=== PATIENT | female | born 1940 | race Two or more races ===

== ENCOUNTER 2016-10-04 22:30 | Inpatient (IN) | payer MEDICARE, MEDICAID ==
[2016-10-04 23:19] LABS: ABSOLUTE EOSINOPHILS # (AUTO) 0.3 10^3/uL (0.0-0.6); ABSOLUTE LYMPHOCYTES (AUTO) 1.8 10^3/uL (0.5-4.7); ABSOLUTE MONOCYTES (AUTO) 0.9 10^3/uL (0.1-1.4); ABSOLUTE NEUT (AUTO) 9.9 10^3/uL (1.7-8.2); BASOPHILS % (AUTO) 0.3 % (0-2); EOSINOPHILS % (AUTO) 1.9 % (0-6); HEMATOCRIT 38.7 % (36.0-47.0); HEMOGLOBIN 12.8 g/dL (12.0-15.5); HGB HCT DIFFERENCE -0.3; LYMPHOCYTES % (AUTO) 14.3 % (13-45); MEAN CORPUSCULAR VOLUME 82 fl (80-97); MONOCYTES % (AUTO) 6.9 % (3-13); RED BLOOD COUNT 4.73 10^6/uL (3.72-5.28); RED CELL DISTRIBUTION WIDTH 15.7 % (11.5-14.0); SEGMENTED NEUTROPHILS % (AUTO) 76.6 % (42-78); WHITE BLOOD COUNT 12.9 10^3/uL (4.0-10.5)
--- NOTE | 2016-10-04 23:25 | RADIOLOGY REPORT (SQ) ---
EXAM DESCRIPTION: CHEST SINGLE VIEW COMPLETED DATE/TIME: 10/04/2016 11:16 pm REASON FOR STUDY: chest pain COMPARISON: None. EXAM PARAMETERS: NUMBER OF VIEWS: One view. TECHNIQUE: Single frontal radiographic view of the chest acquired. RADIATION DOSE: NA LIMITATIONS: None. FINDINGS: LUNGS AND PLEURA: No opacities, masses or pneumothorax. No pleural effusion. Chronic appe aring changes are identified. MEDIASTINUM AND HILAR STRUCTURES: No masses. Contour normal. HEART AND VASCULAR STRUCTURES: Heart normal in size. Normal vasculature. BONES: No acute findings. HARDWARE: Transvenous pacemaker is identified in position. OTHER: No other significant finding. IMPRESSION: NO ACUTE RADIOGRAPHIC FINDING IN THE CHEST. TECHNICAL DOCUMENTATION: JOB ID: [id number]
--- NOTE | 2016-10-04 23:38 | ER Document Report ---
ED General - General Chief Complaint: Chest Pain Stated Complaint: CHEST PAIN Time Seen by Provider: 10/04/16 23:11 Mode of Arrival: Ambulatory Information source: Patient Notes: 76-year-old female presents with complaints of cough chest wall pain of 3 day duration. Patient notes it is a dry cough denies any fevers admits to shortness of breath TRAVEL OUTSIDE OF THE [place] IN LAST 30 DAYS: No - HPI Onset: Other - 3 day duration Onset/Duration: Persistent Quality of pain: Achy Severity: Mild Pain Level: 1 Associated symptoms: Body/muscle aches, Nonproductive cough, Shortness of breath Exacerbated by: Coughing Relieved by: Denies Similar symptoms previously: No Recently seen / treated by doctor: No - Related Data Allergies/Adverse Reactions: aspirin Allergy (Verified 10/04/16 22:51) Home Medications: Current Home Medications No Home Medications 10/04/16 [History] Past Medical History - Social History Smoking Status: Never Smoker Cigarette use (# per day): No Chew tobacco use (# tins/day): No Smoking Education Provided: No Family History: Reviewed & Not Pertinent Renal/ Medical History: Denies: Hx Peritoneal Dialysis Review of Systems - Review of Systems Notes: REVIEW OF SYSTEMS: CONSTITUTIONAL : Denies fever, chills, or sweats. Denies recent illness. EENT: Denies eye, ear, throat, or mouth pain or symptoms. Denies nasal or sinus congestion or discharge. Denies throat, tongue, or mouth swelling or difficulty swallowing. CARDIOVASCULAR: Denies chest pain. Denies palpitations or racing or irregular heart beat. Denies ankle edema. RESPIRATORY: sob GASTROINTESTINAL: Denies abdominal pain or distention. Denies nausea, vomiting , or diarrhea. Denies blood in vomitus, stools, or per rectum. Denies black, tarry stools. Denies constipation. GENITOURINARY: Denies difficulty urinating, painful urination, burning, frequency, blood in urine, or discharge. FEMALE GENITOURINARY: Denies vaginal bleeding, heavy or abnormal periods, irregular periods. Denies vaginal discharge or odor. MUSCULOSKELETAL: Denies back or neck pain or stiffness. Denies joint pain or swelling. SKIN: Denies rash, lesions or sores. HEMATOLOGIC : Denies easy bruising or bleeding. LYMPHATIC: Denies swollen, enlarged glands. NEUROLOGICAL: Denies confusion or altered mental status. Denies passing out or loss of consciousness. Denies dizziness or lightheadedness. Denies headache. Denies weakness or paralysis or loss of use of either side. Denies problems with gait or speech. Denies sensory loss, numbness, or tingling. Denies seizures. PSYCHIATRIC: Denies anxiety or stress. Denies depression, suicidal ideation, or homicidal ideation. ALL OTHER SYSTEMS REVIEWED AND NEGATIVE. PHYSICAL EXAMINATION: GENERAL: Well-appearing, well-nourished and in no acute distress. HEAD: Atraumatic, normocephalic. EYES: Pupils equal round and reactive to light, extraocular movements intact, conjunctiva are normal. ENT: Nares patent, oropharynx clear without exudates. Moist mucous membranes. NECK: Normal range of motion, supple without lymphadenopathy LUNGS: Bibasilar crackles HEART: Tachycardia ABDOMEN: Soft, nontender, nondistended abdomen. No guarding, no rebound. No masses appreciated. Female : deferred Musculoskeletal: Normal range of motion, no pitting or edema. No cyanosis. NEUROLOGICAL: Cranial nerves grossly intact. Normal speech, normal gait. Normal sensory, motor exams PSYCH: Normal mood, normal affect. SKIN: Warm, Dry, normal turgor, no rashes or lesions noted. Dictation was performed using [employer] voice recognition software Physical Exam - Vital signs Vitals: Temp Pulse Resp BP Pulse Ox 99.4 F 110 H 22 H 154/69 H 93 10/04/16 22:51 10/04/16 22:51 10/04/16 22:51 10/04/16 22:51 10/04/16 22:51 Course - Re-evaluation Re-evalutation: 10/05/16 01:24 Chest x-ray no no acute abnormality CT of the chest is pending given tachycardia elevated d-dimer - Vital Signs Vital signs: Temp Pulse Resp BP Pulse Ox 99.4 F 110 H 22 H 154/69 H 99 10/04/16 22:51 10/04/16 22:51 10/04/16 22:51 10/04/16 22:51 10/04/16 23:51 - Laboratory Result Diagrams: 10/04/16 23:05 10/04/16 23:05 Laboratory results interpreted by me: 10/04/16 10/04/16 10/04/16 23:05 23:05 23:05 WBC 12.9 H RDW 15.7 H Absolute Neutrophils 9.9 H D-Dimer 0.70 H Glucose 117 H Creatine Kinase 29 L Total Protein 8.5 H Discharge - Discharge Clinical Impression: Pneumonia Qualifiers: Pneumonia type: due to unspecified organism Laterality: right Lung location: lower lobe of lung Qualified Code(s): J18.1 - Lobar pneumonia, unspecified organism Sepsis Qualifiers: Sepsis type: sepsis due to unspecified organism Qualified Code(s): A41.9 - Sepsis, unspecified organism Condition: Stable Disposition: ADMITTED INPATIENT Admitting Provider: Hospitalist Unit Admitted: Telemetry
[2016-10-04 23:41] LABS: ALANINE AMINOTRANSFERASE 30 U/L (9-52); ALBUMIN 4.4 g/dL (3.5-5.0); ALKALINE PHOSPHATASE 90 U/L (38-126); ANION GAP 12 (5-19); ASPARTATE AMINO TRANSFERASE 36 U/L (14-36); BILIRUBIN,DIRECT 0.4 mg/dL (0.0-0.4); BILIRUBIN,TOTAL 0.6 mg/dL (0.2-1.3); BLOOD UREA NITROGEN 13 mg/dL (7-20); CALCIUM 8.7 mg/dL (8.4-10.2); CARBON DIOXIDE 30 mmol/L (22-30); CHLORIDE 100 mmol/L (98-107); CREATINE KINASE 29 U/L (30-135); CREATININE RESULT 0.85 mg/dL (0.52-1.25); GLUCOSE 117 mg/dL (75-110); POTASSIUM 3.8 mmol/L (3.6-5.0); SODIUM 141.5 mmol/L (137-145); TOTAL PROTEIN 8.5 g/dL (6.3-8.2)
[2016-10-04 23:52] LABS: CREATINE KINASE MB 0.28 ng/mL (<4.55)
[2016-10-04 23:53] LABS: TROPONIN I < 0.012 ng/mL
[2016-10-05] MEDS: NORMAL SALINE 1000 ML 1,000 ML IV PRN ×4 (00:24→04:38)
--- NOTE | 2016-10-05 02:15 | RADIOLOGY REPORT (SQ) ---
EXAM DESCRIPTION: CTA CHEST COMPLETED DATE/TIME: 10/05/2016 1:43 am REASON FOR STUDY: sob chest pain COMPARISON: CR, 10/04/2016. TECHNIQUE: CT scan of the chest performed using helical scanning technique with dynamic intravenous contrast injection. Images reviewed with lung, soft tissue and bone windows. Reconstructed coronal and sagittal MPR images reviewed. Additional 3 dimensional post-processing performed to develop Maximal Intensity Projection images ([place] P). All images stored on PACS. All CT scanners at this facility use dose modulation, iterative reconstruction, and/or weight based d osing when appropriate to reduce radiation dose to as low as reasonably achievable (ALARA). [facility]: Dose Right [facility]: CareDose [facility]: Dose Right [facility]: Teradose 4D [facility]: [employer] CONTRAST TYPE AND DOSE: contrast/concentration: Isovue 370.00 mg/ml; Total Contrast Delivered: 100.0 ml; Total Saline Delivered: 40.0 ml RENAL FUNCTION: Creatinine 0.9. RADIATION DOSE: Up-to-date CT equipment and radiation dose reduction techniques were employed. CTDIv ol: 18.6 mGy. DLP: 577 mGy-cm. . LIMITATIONS: IV infiltration; after repeat imaging. Streak artifact. Related to cardiac stimulatio n device Decreases sensitivity -specificity FINDINGS: LUNGS AND PLEURA: Rdeg-si-ovuxhdit thickened interstitium, scar, and/or fibrosis with uppe r lobe predominance bilaterally and scattered involvement of the lower lobes. Mild likely benign pul monary nodular components include a non solid 0.4 cm nodule of the superior segment of the right lowe r lobe, image 17 of series 4. AORTA AND GREAT VESSELS: No aneurysm or dissection. HEART: No pericardial effusion. PULMONARY ARTERIES: No significant pulmonary embolus. No right ventricular strain. HILAR AND MEDIASTINAL STRUCTURES: Bgxs-ih-ruuniysd mediastinal and bi hilar lymphadenopathy. HARDWARE: None in the chest. UPPER ABDOMEN: No significant findings. Limited exam. THYROID AND OTHER SOFT TISSUES: No masses. No adenopathy. BONES: No acute or significant finding. 3D MIPS: Confirm above findings. OTHER: No other significant finding. IMPRESSION: 1. Zluj-sb-gnhwjusn chronic interstitial lung disease and/or mild -moderate pulmonary e alcon, 0.4 cm right lower lobar pulmonary nodule, and wxwn-nd-gettalbo mediastinum bi hilar lymphadeno jameel. Infectious, inflammatory, and neoplastic processes are in the differential diagnosis. CT buck veillance recommended in 3 months. 2. No evidence of pulmonary emboli. TECHNICAL DOCUMENTATION: JOB ID: [id number] Quality ID # [id number]: Final reports with documentation of one or more dose reduction techniques (e.g., Au tomated exposure control, adjustment of the mA and/or kV according to patient size, use of iterative reconstruction technique) 2010 [employer]- All Rights Reserved
[2016-10-05] MEDS ORDERED: LEVOFLOXACIN 500 MG/D5W RTU 100 ML IV ONE (02:19)
[2016-10-05 03:08] LABS: ADD ON TESTING BLD IN LAB ACKNOWLEDGE
[2016-10-05] MEDS ORDERED: IPRATROPIUM/ALBUTEROL 0.5-2.5 MG/3 ML AMPUL NEB PRN (05:29)
[2016-10-05] MEDS ORDERED: ACETAMINOPHEN 325 MG TABLET PO PRN (05:29)
[2016-10-05] MEDS ORDERED: PROMETHAZINE HCL 25 MG TABLET PO PRN (05:31)
--- NOTE | 2016-10-05 05:46 | PDOC H&P ---
History of Present Illness Admission Date/PCP: 10/05/16 03:09 [facility] Cardiology Dr. Garcia Patient complains of: Cough, shortness of breath, chest wall pain History of Present Illness: FLAVIO ZHONG is a 76 year old female, status post permanent pacemaker implant for bradycardia, but otherwise negative cardiac and pulmonary history, who presents to the emergency room for evaluation of a 3 day history of a persistent quite annoying mostly dry cough, with associated chest wall pain and shortness of breath. Patient has been discussed with emergency room physician who evaluated the patient. Denies nausea vomiting, fever or chills, diarrhea or dysuria. She and daughter, who is at her side with patient's approval, spent a 3 day weekend in [place] [employer]. During that stay, daughter had an upper respiratory tract infection, along with an asthma flare. Daughter states they have since found out that a number of other Campers have had similar respiratory tract complaints. Patient herself has never smoked, but her ex- did.. Dictation via voice recognition software. Laboratory results are listed in Zapproved and are reviewed. X-ray summary results are listed below, with full report(s) reviewed. . EKG reviewed. No prior EKG available for comparison. Social history/personal habits: . Lives alone. Retired. No use of alcohol tobacco or illicit drugs. Allergies/adverse reactions are listed in Zapproved and are reviewed. Home medications none REVIEW OF SYSTEMS: Constitutional: Denies fever or chills. Eyes: Wears glasses. ENT: No swallowing problems or complaints. Denies hearing loss. Pulmonary: See history and present illness. Cardiovascular: See history and present illness. Gastrointestinal: No current complaints, including nausea or vomiting. Skin: No current complaints, including rashes. Hematologic: Denies easy bruising. Neurologic: No current complaints, including numbness or tingling. Musculoskeletal: No current or chronic joint complaints, such as arthritis. Psychiatric: Denies anxiety or depression. Endocrine: No current complaints, including polyuria. Genitourinary: No current complaints, including dysuria. PHYSICAL EXAMINATION: 5 feet 7 inches tall. 72.7 kg. BMI 25.1 kg/m. Temperature 98.4. Blood pressure 148/58. Pulse 103 and regular. Respirations are 19 and unlabored. 98 % saturation on 2 L oxygen per nasal cannula. Slightly overweight otherwise well-nourished well-developed female, who appears a number of years younger than her stated age. Pleasant awake alert and cooperative. No obvious distress other than perhaps mildly anxious. Patient understands and speaks Romansh quite well. Daughter is present at her side; patient approves. Female floor nurse Va is present. Skin is warm and dry. No grossly obvious evidence of rash in areas of skin examined. No subcutaneous nodules palpated. ENT: Hearing grossly normal to normal conversation. Tongue midline on protrusion pink and slightly moist. Eyes: No scleral icterus. Pupils equal and reactive to light at 4 mm. Hooper conjunctivae. Neck is supple and nontender to gentle active range of motion and palpation. Midline trachea. No palpable thyroid nodule mass enlargement or tenderness. Lymphatic: No palpable cervical or clavicular nodes. Neck and lymphatic exams limited by patient body habitus. Psychiatric: Reasonable insight into acute and chronic medical issues. Oriented to time location and why here. Lungs: Auscultation reveals equal breath sounds bilaterally. No use of accessory respiratory muscles. Slightly coarse breath sounds in the right base. Breath sounds clear otherwise. Cardiovascular: Heart regular rate and rhythm, without gallop murmur or rub. No carotid or abdominal aortic bruits. No ankle or pedal edema. Faintly palpable dorsalis pedis pulses. Abdomen:soft slightly distended nontender with positive bowel sounds. Unable to adequately evaluate abdomen for masses or organomegaly due to distention. Extremities: Feet are warm and dry. No calf tenderness to compression. No grossly obvious visual evidence of calf swelling. Gentle manipulation of lower extremities fails to reveal any obvious evidence of injury or instability to knees hips or ankles. Neurologic: Moves upper extremities grossly normally. Patellar reflexes absent. Absent Babinski. Light touch is intact at feet. Dorsiflexion and plantarflexion of feet 5 / 5 and symmetric. Past Medical History Cardiac Medical History: Denies: Atrial Fibrillation, Congestive Heart Failure, Coronary Artery Disease, DVT, Myocardial Infarction, Hyperlipidema, Hypertension, Pulmonary Embolism Pulmonary Medical History: Denies: Asthma, Chronic Obstructive Pulmonary Disease (COPD), Sleep Apnea EENT Medical History: Reports: Eyes - Wears glasses Denies: Ears, Throat Neurological Medical History: Denies: Hemorrhagic CVA, Ischemic CVA, Seizures Endocrine Medical History: Denies: Diabetes Mellitus Type 1, Diabetes Mellitus Type 2, Hyperthyroidism, Hypothyroidism Renal/ Medical History: Reports: None GI Medical History: Denies: Cirrhosis, Gastroesophageal Reflux Disease, Hepatitis, Peptic Ulcer Disease Musculoskeltal Medical History: Denies: Arthritis Skin Medical History: Reports: None Psychiatric Medical History: Denies: Alcohol Dependency, Depression, General Anxiety Disorder, Substance Abuse, Tobacco Dependency Hematology: Reports: None Infectious Medical History: Denies: Hepatitis B, Hepatitis C Past Surgical History Past Surgical History: Reports: Appendectomy, Hysterectomy, Pacemaker, Other - Hemorrhoidectomy Social History Information Source: Patient, Relative - Daughter, Emergency Med Personnel, [facility] Records Lives with: Alone Smoking Status: Never Smoker Frequency of Alcohol Use: None Hx Recreational Drug Use: No Drugs: None Hx Prescription Drug Abuse: No - Advance Directive Resuscitation Status: Full Code Surrogate healthcare decision maker:: Daughter Adamaris Yanez Family History Family History: Reviewed & Not Pertinent Parental Family History Reviewed: Yes - Mother of Alzheimer's; father of cancer. Children Family History Reviewed: Yes - Hypertension and asthma Sibling(s) Family History Reviewed.: Yes - Diabetic Medication/Allergy Home Medications: Azithromycin [Zithromax Tri-Carlos] 500 mg PO DAILY #1 pkg 10/07/16 Cefuroxime Axetil [Ceftin 500 mg Tablet] 1 tab PO BID #16 tablet 10/07/16 Furosemide [Lasix 20 mg Tablet] 20 mg PO QAM #30 tablet 10/07/16 Potassium Chloride [K-Tab] 10 meq PO DAILY #30 tablet.sa 10/07/16 Allergies/Adverse Reactions: aspirin Allergy (Verified 10/04/16 22:51) Physical Exam Vital Signs: Temp Pulse Resp BP Pulse Ox 98.4 F 104 H 19 148/58 H 98 10/05/16 04:30 10/05/16 04:30 10/05/16 04:30 10/05/16 04:30 10/05/16 04:30 Intake & Output 10/04/16 10/05/16 10/06/16 00:59 00:59 00:59 Intake Total 0 Output Total 0 Balance 0 Weight 72.7 kg Results Impressions: Chest X-Ray 10/04/16 22:56 IMPRESSION: NO ACUTE RADIOGRAPHIC FINDING IN THE CHEST. Chest/Abdomen CTA 10/05/16 00:00 IMPRESSION: 1. Rgcm-lp-kxrtcoqf chronic interstitial lung disease and/or mild -moderate pulmonary edema, 0.4 cm right lower lobar pulmonary nodule, and mild- to-moderate mediastinum bi hilar lymphadenopathy. Infectious, inflammatory, and neoplastic processes are in the differential diagnosis. CT surveillance recommended in 3 months. 2. No evidence of pulmonary emboli. Assessment & Plan - Diagnosis (1) Abnormal CT scan, chest Is this a current diagnosis for this admission?: YesPlan: Probably due in part to prior extensive secondhand smoke exposure from her ex- . (2) Hilar adenopathy Is this a current diagnosis for this admission?: Yes (3) Nodule of right lung Is this a current diagnosis for this admission?: YesPlan: Oncology consult for the various abnormal findings on abnormal CT scan of chest. Daughter and patient understand rationale for consult, to ensure findings are not due to cancer. Discussed in layperson's terms. (4) Pneumonia Qualifiers: Pneumonia type: due to unspecified organism Laterality: right Lung location: lower lobe of lung Qualified Code(s): J18.1 - Lobar pneumonia, unspecified organism Is this a current diagnosis for this admission?: YesPlan: Patient will be admitted under pneumonia protocol. Incentive spirometry twice a day. As needed DuoNeb's. Antibiotics will consist of intravenous Zithromax along with Rocephin. I strongly encouraged patient to notify staff should patient feel that breathing is worsening. Patient is a full code. I have strongly encouraged patient to be careful getting out of bed without notifying staff, to avoid a fall with injury. Knee high SCDs for DVT prophylaxis, along with subcutaneous Lovenox. Impression and plans were discussed with patient and daughter, both of whom concur Time spent in evaluation and management of patient: 68 minutes. - Time Time Spent: 50 to 70 Minutes Anticipated discharge: Home Within: within 72 hours - Inpatient Certification Based on my medical assessment, after consideration of the patient's comorbidities, presenting symptoms, or acuity I expect that the services needed warrant INPATIENT care.: Yes I certify that my determination is in accordance with my understanding of Medicare's requirements for reasonable and necessary INPATIENT services [42 CFR 412.3e].: Yes Medical Necessity: Need Close Monitoring Due to Risk of Patient Decompensation, Need for IV Antibiotics, Risk of Complication if Not Cared For in Hospital Post Hospital Care: D/C or Transfer Summary
[2016-10-05 06:04] LABS: ABSOLUTE EOSINOPHILS # (AUTO) 0.2 10^3/uL (0.0-0.6); ABSOLUTE LYMPHOCYTES (AUTO) 1.9 10^3/uL (0.5-4.7); ABSOLUTE MONOCYTES (AUTO) 0.9 10^3/uL (0.1-1.4); ABSOLUTE NEUT (AUTO) 9.2 10^3/uL (1.7-8.2); BASOPHILS % (AUTO) 0.2 % (0-2); EOSINOPHILS % (AUTO) 1.9 % (0-6); HEMATOCRIT 33.8 % (36.0-47.0); HEMOGLOBIN 11.3 g/dL (12.0-15.5); HGB HCT DIFFERENCE 0.1; LYMPHOCYTES % (AUTO) 15.8 % (13-45); MEAN CORPUSCULAR HEMOGLOBIN 26.9 pg (27.0-33.4); MEAN CORPUSCULAR HGB CONC 33.5 g/dL (32.0-36.0); MEAN CORPUSCULAR VOLUME 80 fl (80-97); MONOCYTES % (AUTO) 7.4 % (3-13); RED BLOOD COUNT 4.22 10^6/uL (3.72-5.28); RED CELL DISTRIBUTION WIDTH 15.2 % (11.5-14.0); SEGMENTED NEUTROPHILS % (AUTO) 74.7 % (42-78); WHITE BLOOD COUNT 12.3 10^3/uL (4.0-10.5)
--- NOTE | 2016-10-05 08:48 | PDOC CONSULTATION ---
Consultation Consult Date: 10/05/16 Attending physician:: GILMA CORLEY Consult reason:: Hilar and mediastinal adenopathy, upper respiratory tract infection, subcentimeter pulmonary nodules History of Present Illness Admission Date/PCP: 10/05/16 05:29 Patient complains of: Cough, shortness of breath History of Present Illness: 76-year-old female with a 2 day history of increasing shortness of breath and cough, the cough ultimately became fairly severe, resulting in chest pain, ultimately she presented to the ED, of note she was at a retreat in several individuals at the retreat had similar URI symptoms, upon presentation she had a CTA of the chest, this is negative for thrombosis but she was noted to have mildly enlarged hilar and mediastinal adenopathy, there is also subcentimeter pulmonary nodules largest 4 mm. She has had some weight loss over the last year , she tells me about 15-20 pounds, but she has been eating less. But she is asymptomatic otherwise. Past Medical History Cardiac Medical History: Denies: Atrial Fibrillation, Congestive Heart Failure, Coronary Artery Disease, DVT, Myocardial Infarction, Hyperlipidema, Hypertension, Pulmonary Embolism Pulmonary Medical History: Denies: Asthma, Chronic Obstructive Pulmonary Disease (COPD), Sleep Apnea EENT Medical History: Reports: Eyes - Wears glasses Denies: Ears, Throat Neurological Medical History: Denies: Hemorrhagic CVA, Ischemic CVA, Seizures Endocrine Medical History: Denies: Diabetes Mellitus Type 1, Diabetes Mellitus Type 2, Hyperthyroidism, Hypothyroidism Renal/ Medical History: Reports: None GI Medical History: Denies: Cirrhosis, Gastroesophageal Reflux Disease, Hepatitis, Peptic Ulcer Disease Musculoskeltal Medical History: Denies: Arthritis Skin Medical History: Reports: None Psychiatric Medical History: Denies: Alcohol Dependency, Depression, General Anxiety Disorder, Substance Abuse, Tobacco Dependency Hematology: Reports: None Infectious Medical History: Denies: Hepatitis B, Hepatitis C Past Surgical History Past Surgical History: Reports: Appendectomy, Hysterectomy, Pacemaker, Other - Hemorrhoidectomy Social History Lives with: Alone Smoking Status: Never Smoker Frequency of Alcohol Use: None Hx Recreational Drug Use: No Drugs: None Hx Prescription Drug Abuse: No - Advance Directive Resuscitation Status: Full Code Family History Family History: Reviewed & Not Pertinent Parental Family History Reviewed: Yes Children Family History Reviewed: Yes Sibling(s) Family History Reviewed.: Yes Medication/Allergy Home Medications: No Home Medications 10/04/16 Allergies/Adverse Reactions: aspirin Allergy (Verified 10/04/16 22:51) Review of Systems Constitutional: ABSENT: chills, fever(s), headache(s), weight gain, weight loss Eyes: ABSENT: visual disturbances Ears: ABSENT: hearing changes Cardiovascular: ABSENT: chest pain, dyspnea on exertion, edema, orthropnea, palpitations Respiratory: ABSENT: cough, hemoptysis Gastrointestinal: ABSENT: abdominal pain, constipation, diarrhea, hematemesis, hematochezia, nausea, vomiting Genitourinary: ABSENT: dysuria, hematuria Musculoskeletal: ABSENT: joint swelling Integumentary: ABSENT: rash, wounds Neurological: ABSENT: abnormal gait, abnormal speech, confusion, dizziness, focal weakness, syncope Psychiatric: ABSENT: anxiety, depression, homidical ideation, suicidal ideation Endocrine: ABSENT: cold intolerance, heat intolerance, polydipsia, polyuria Hematologic/Lymphatic: ABSENT: easy bleeding, easy bruising Physical Exam Vital Signs: Temp Pulse Resp BP Pulse Ox 98.4 F 86 18 123/42 L 99 10/05/16 07:07 10/05/16 07:07 10/05/16 07:07 10/05/16 07:07 10/05/16 07:07 Intake & Output 10/04/16 10/05/16 10/06/16 06:59 06:59 06:59 Intake Total 5 Balance 5 General appearance: PRESENT: no acute distress, well-developed, well-nourished Head exam: PRESENT: atraumatic, normocephalic Eye exam: PRESENT: conjunctiva pink, EOMI, PERRLA. ABSENT: scleral icterus Ear exam: PRESENT: normal external ear exam Mouth exam: PRESENT: moist, tongue midline Neck exam: ABSENT: carotid bruit, JVD, lymphadenopathy, thyromegaly Respiratory exam: PRESENT: clear to auscultation arturo. ABSENT: rales, rhonchi, wheezes Cardiovascular exam: PRESENT: RRR. ABSENT: diastolic murmur, rubs, systolic murmur Pulses: PRESENT: normal dorsalis pedis pul Vascular exam: PRESENT: normal capillary refill GI/Abdominal exam: PRESENT: normal bowel sounds, soft. ABSENT: distended, guarding, mass, organolmegaly, rebound, tenderness Rectal exam: PRESENT: deferred Extremities exam: PRESENT: full ROM. ABSENT: calf tenderness, clubbing, pedal edema Neurological exam: PRESENT: alert, awake, oriented to person, oriented to place , oriented to time, oriented to situation, CN II-XII grossly intact. ABSENT: motor sensory deficit Psychiatric exam: PRESENT: appropriate affect, normal mood. ABSENT: homicidal ideation, suicidal ideation Skin exam: PRESENT: dry, intact, warm. ABSENT: cyanosis, rash Results Impressions: Chest X-Ray 10/04/16 22:56 IMPRESSION: NO ACUTE RADIOGRAPHIC FINDING IN THE CHEST. Chest/Abdomen CTA 10/05/16 00:00 IMPRESSION: 1. [id number] chronic interstitial lung disease and/or mild -moderate pulmonary edema, 0.4 cm right lower lobar pulmonary nodule, and mild- to-moderate mediastinum bi hilar lymphadenopathy. Infectious, inflammatory, and neoplastic processes are in the differential diagnosis. CT surveillance recommended in 3 months. 2. No evidence of pulmonary emboli. Assessment & Plan - Diagnosis (1) Hilar adenopathy Is this a current diagnosis for this admission?: YesPlan: Hilar and mediastinal adenopathy, I do not believe that is large enough to cause the cough and the presentation, it probably is reactive to the most likely viral upper respiratory tract infection that brought her in, she is on antibiotics for community-acquired pneumonia which is certainly appropriate. We would favor repeating CT and most likely 2-3 months time once the infection resolves. Ultimately if the CT does not indicate resolution we would then favor PET/CT to further evaluate. (2) Nodule of right lung Is this a current diagnosis for this admission?: YesPlan: Subcentimeter, too small to even evaluate by PET CT right now, we will just monitor this as an outpatient - Time Time Spent: Greater than 70 Minutes Critical Time spent with patient: 35 or more minutes - Inpatient Certification Based on my medical assessment, after consideration of the patient's comorbidities, presenting symptoms, or acuity I expect that the services needed warrant INPATIENT care.: Yes I certify that my determination is in accordance with my understanding of Medicare's requirements for reasonable and necessary INPATIENT services [42 CFR 412.3e].: Yes Medical Necessity: Failure to Improve With Outpatient Therapy
[2016-10-05] MEDS: CEFTRIAXONE 1 GM/D5W RTU 50 ML IV SCH (09:30)
[2016-10-05] MEDS: ENOXAPARIN SODIUM INJ 40 MG/0.4 ML DISP.SYRIN SUBCUT SCH (09:31)
[2016-10-05] MEDS ORDERED: ALBUTEROL SULFATE 0.083% NEB 2.5 MG/3 ML AMPUL NEB PRN (09:39)
--- NOTE | 2016-10-05 09:59 | PROGRESS NOTE E ---
Progress Note NAME: FLAVIO ZHONG : 1940 AGE: 76Y DATE: 10/05/2016 ROOM: 528 SUBJECTIVE: The patient is currently lying in bed. She states she does feel better than when she came in. She does admit to ongoing pain over her left chest wall. She has had a strong cough but has not been able to produce any sputum. The patient denies any nausea, vomiting, diarrhea. No shortness of breath at the present moment. No fever or chills. The patient has been afebrile. Blood pressure has been in a good range. The patient does not voice any other concerns at this time. REVIEW OF SYSTEMS: The rest of the review of systems is negative. MEDICATIONS: Medications have been reviewed. OBJECTIVE: GENERAL: The patient is a 76-year-old female who is awake, alert, and oriented to person, place, time, and situation. She is verbal, conversational, does not appear to be in any acute distress. VITAL SIGNS: As follows: Temperature is 98.4, pulse 86, respirations 18, blood pressure 123/42, oxygen saturation is 99% on 2 L nasal cannula. SKIN: Warm and dry. No rash, not diaphoretic. HEENT: Pupils equal, round, and reactive to light and accommodation. Conjunctivae pink. No JVP. CARDIOVASCULAR: Heart is regular with no murmur or rub. CHEST: The patient is diminished in left lung field. Right lung field is clear, symmetrical, unlabored. ABDOMEN: Soft, nontender, nondistended. BACK: No CVA tenderness or sacral edema. EXTREMITIES: No clubbing, cyanosis, edema. PSYCHIATRIC: Appropriate affect. Pleasant mood. DIAGNOSTICS: Lab values are as follows. Hematology obtained on 10/05/2016: WBCs are 12.3, hemoglobin is 11.3, hematocrit is 33.8, platelet count is 223,000. Chemistry obtained on 10/05/2016: Lactic acid is 1.3, magnesium is 2, troponin 0.012. Blood cultures obtained on 10/05/2016 are pending. IMPRESSION AND PLAN: 1. COMMUNITY-ACQUIRED PNEUMONIA. Will continue antibiotic coverage and follow. 2. CHRONIC INTERSTITIAL LUNG DISEASE. The patient does give some history of wheezing. Will add steroids, Singulair as well as Flonase given the patient's persistent dry cough and follow. 3. SICK SINUS SYNDROME. The patient does have a pacemaker in place. 4. ACUTE RESPIRATORY FAILURE. The patient's oxygen saturations were 87% on room air; however, this is much improved. Will continue supplemental O2, nebulizers and follow. 5. DVT PROPHYLAXIS. Will continue subcutaneous Lovenox. DISPOSITION: THE PATIENT IS A FULL CODE. Pending the patient's symptomatology and diagnostic findings, will re-evaluate in the a.m. for discharge. Time spent on this followup, including assessment/plan, physical examination, patient education, family meeting, and multidisciplinary visit, is 35 minutes. DICTATING PHYSICIAN: GARRISON SAHA NP [id number] PHY#: [id number] ID: [id number] JOB#: [id number] ACCT: [id number] cc: >
[2016-10-05] MEDS: GUAIFENESIN SYRP 200 MG/10 ML UDC PO PRN ×2 (10:42→16:24)
[2016-10-05] MEDS: FLUTICASONE NASAL SPRAY 50 MCG/SPRY 120 SPRAY/16 GM NASL SCH ×2 (10:43→21:16)
[2016-10-05] MEDS: PREDNISONE 20 MG TABLET PO SCH ×2 (10:43→17:09)
[2016-10-05] MEDS: AZITHROMYCIN 500 MG in DEXTROSE 5%-WATER 250 ML IV SCH (11:59)
--- NOTE | 2016-10-05 17:09 | EKG REPORT ---
SEVERITY:- ABNORMAL ECG - SINUS TACHYCARDIA PROBABLE LEFT ATRIAL ABNORMALITY : Confirmed by: Criselda Sampson MD 05-Oct-2016 17:09:25
[2016-10-05] MEDS: MONTELUKAST SODIUM 10 MG TABLET PO SCH (21:15)
--- NOTE | 2016-10-06 08:30 | PDOC PROGRESS REPORT ---
Subjective Progress Note for:: 10/06/16 Subjective:: Patient doing much better today Physical Exam Vital Signs: Temp Pulse Resp BP Pulse Ox 97.8 F 63 24 H 121/39 L 95 10/06/16 08:00 10/06/16 08:00 10/06/16 08:00 10/06/16 08:00 10/06/16 08:00 Intake & Output 10/05/16 10/06/16 10/07/16 06:59 06:59 06:59 Intake Total 2044 Balance 2044 General appearance: PRESENT: no acute distress, well-developed, well-nourished Head exam: PRESENT: atraumatic, normocephalic Eye exam: PRESENT: conjunctiva pink, EOMI, PERRLA. ABSENT: scleral icterus Ear exam: PRESENT: normal external ear exam Mouth exam: PRESENT: moist, tongue midline Neck exam: ABSENT: carotid bruit, JVD, lymphadenopathy, thyromegaly Respiratory exam: PRESENT: clear to auscultation arturo. ABSENT: rales, rhonchi, wheezes Cardiovascular exam: PRESENT: RRR. ABSENT: diastolic murmur, rubs, systolic murmur Pulses: PRESENT: normal dorsalis pedis pul Vascular exam: PRESENT: normal capillary refill GI/Abdominal exam: PRESENT: normal bowel sounds, soft. ABSENT: distended, guarding, mass, organolmegaly, rebound, tenderness Rectal exam: PRESENT: deferred Extremities exam: PRESENT: full ROM. ABSENT: calf tenderness, clubbing, pedal edema Neurological exam: PRESENT: alert, awake, oriented to person, oriented to place , oriented to time, oriented to situation, CN II-XII grossly intact. ABSENT: motor sensory deficit Psychiatric exam: PRESENT: appropriate affect, normal mood. ABSENT: homicidal ideation, suicidal ideation Skin exam: PRESENT: dry, intact, warm. ABSENT: cyanosis, rash Results Impressions: Chest X-Ray 10/04/16 22:56 IMPRESSION: NO ACUTE RADIOGRAPHIC FINDING IN THE CHEST. Chest/Abdomen CTA 10/05/16 00:00 IMPRESSION: 1. Kjfw-dn-dsgsviht chronic interstitial lung disease and/or mild -moderate pulmonary edema, 0.4 cm right lower lobar pulmonary nodule, and mild- to-moderate mediastinum bi hilar lymphadenopathy. Infectious, inflammatory, and neoplastic processes are in the differential diagnosis. CT surveillance recommended in 3 months. 2. No evidence of pulmonary emboli. Assessment & Plan - Diagnosis (1) Hilar adenopathy Is this a current diagnosis for this admission?: YesPlan: Follow-up as outpatient in our clinic in 2 months, we will repeat imaging at that time will sign off thank you for the opportunity to assist in this patient' s care (2) Nodule of right lung Is this a current diagnosis for this admission?: YesPlan: As above - Time Time Spent with patient: 25-34 minutes Critical Time spent with patient: 25-34 minutes
[2016-10-06] MEDS: ENOXAPARIN SODIUM INJ 40 MG/0.4 ML DISP.SYRIN SUBCUT SCH (09:26)
[2016-10-06] MEDS: CEFTRIAXONE 1 GM/D5W RTU 50 ML IV SCH (09:26)
[2016-10-06] MEDS: PREDNISONE 20 MG TABLET PO SCH ×2 (09:26→18:03)
[2016-10-06] MEDS ORDERED: POTASSIUM CHLORIDE 10 MEQ TABLET.SA PO ONE (10:00)
[2016-10-06] MEDS ORDERED: FUROSEMIDE INJ/PF 40 MG/4 ML SDV IV ONE (10:00)
[2016-10-06] MEDS: FLUTICASONE NASAL SPRAY 50 MCG/SPRY 120 SPRAY/16 GM NASL SCH ×2 (10:02→21:30)
[2016-10-06] MEDS: AZITHROMYCIN 500 MG in DEXTROSE 5%-WATER 250 ML IV SCH (10:02)
--- NOTE | 2016-10-06 10:03 | PROGRESS NOTE E ---
Progress Note NAME: FLAVIO ZHONG : 1940 AGE: 76Y DATE: 10/06/2016 ROOM: 528 SUBJECTIVE: The patient is lying in bed. She states she feels much better than she did yesterday. She denies any nausea, vomiting, diarrhea. No shortness of breath, dizziness, chest pain. No fevers or chills. Shortness of breath overall is improved. The patient has been afebrile, her blood pressure has been in a good range, and the patient does not voice any other concerns at this time. REVIEW OF SYSTEMS: The rest of the review of systems is negative. MEDICATIONS: Medications have been reviewed. OBJECTIVE: GENERAL: The patient is a 76-year-old female who is awake, alert, and oriented to person, place, time, and situation. She is verbal, conversational, ambulatory, does not appear to be in any acute distress. VITAL SIGNS: As follows: Temperature is 97.8, pulse 63, respirations 24, blood pressure is 121/39, oxygen saturation is 95% on room air. SKIN: Warm and dry. No rash. She is not diaphoretic. HEENT: Pupils equal, round, and reactive to light and accommodation. Conjunctivae pink. No JVP. CARDIOVASCULAR: Heart is regular. There is no murmur or rub. CHEST: The patient does have bilateral crackles noted throughout to auscultation but symmetrical, unlabored. ABDOMEN: Soft, nontender, nondistended. BACK: No CVA tenderness or sacral edema. EXTREMITIES: No clubbing, cyanosis, edema. PSYCHIATRIC: Appropriate affect. Pleasant mood. DIAGNOSTICS: Lab values are as follows. Hematology obtained on 10/05/2016: WBCs are 12.3, hemoglobin is 11.3, hematocrit is 33.8, platelet count is 223,000. Chemistry obtained on 10/05/2016: Magnesium is 2, lactic acid is 1.3. Blood cultures obtained on 10/05/2016 reveal no growth. IMPRESSION AND PLAN: 1. COMMUNITY-ACQUIRED PNEUMONIA. Will continue antibiotic coverage and follow. 2. CHRONIC INTERSTITIAL LUNG DISEASE. The patient does have a subcentimeter nodule as well. The patient can follow up with Dr. Velazquez on an outpatient basis. 3. SICK SINUS SYNDROME. Pacemaker in place. 4. PULMONARY EDEMA. The patient has crackles on examination. That was not present yesterday. Will obtain chest x-ray, echocardiogram and diurese and follow. 5. ACUTE RESPIRATORY FAILURE. The patient's oxygen is 87% on room air, much improved. Continue supplemental O2 if needed, nebulizers and follow. 6. DVT PROPHYLAXIS. Will continue subcutaneous Lovenox. DISPOSITION: THE PATIENT IS A FULL CODE. Pending the patient's symptomatology and diagnostic findings, will re-evaluate in the a.m. for possible discharge. Time spent on this followup, including assessment/plan, physical examination, patient education, and family meeting, is 25 minutes. DICTATING PHYSICIAN: GARRISON SAHA NP [id number] PHY#: [id number] ID: [id number] JOB#: [id number] ACCT: [id number] cc: >
--- NOTE | 2016-10-06 11:30 | RADIOLOGY REPORT (SQ) ---
EXAM DESCRIPTION: CHEST PA/LAT COMPLETED DATE/TIME: 10/06/2016 10:54 am REASON FOR STUDY: CHF vs PNA COMPARISON: None. EXAM PARAMETERS: NUMBER OF VIEWS: two views TECHNIQUE: Digital Frontal and Lateral radiographic views of the chest acquired. RADIATION DOSE: NA LIMITATIONS: none FINDINGS: LUNGS AND PLEURA: There are what appear to be chronic interstitial changes. There is ill- defined airspace disease in the right upper lobe and in the left lung. There is asymmetrical distrib ution. There appears to be minimal peribronchial cuffing. There is no pleural effusion. MEDIASTINUM AND HILAR STRUCTURES: No masses or contour abnormalities. HEART AND VASCULAR STRUCTURES: Heart normal size. No evidence for failure. BONES: No acute findings. HARDWARE: Pacemaker OTHER: No other significant finding. IMPRESSION: There are chronic lung changes with what may represent mild superimposed pulmonary edema . An atypical infectious process cannot be excluded. TECHNICAL DOCUMENTATION: JOB ID: [id number] [employer]- All Rights Reserved
--- NOTE | 2016-10-06 19:49 | XCELERA REPORT ---
[address] [address] Transthoracic Echocardiogram Report Name: FLAVIO ZHONG Age: 76 yrs Gender: Female : 1940 Patient Status: Inpatient Patient Location: 5\S\528\S\A Study Date: 10/06/2016 11:16 AM Height: 67 in Weight: 160 lb BSA: 1.8 m2 Procedure: A complete two-dimensional transthoracic echocardiogram was performed (2D, M-mode, spectral and color flow Doppler). The study was technically difficult with many images being suboptimal in quality. Reason For Study: Pulmonary edema Ordering Physician: GARRISON SAHA Performed By: So Hayes Interpretation Summary The study was technically difficult with many images being suboptimal in quality. The left ventricular ejection fraction is normal. There is mild concentric left ventricular hypertrophy. Doppler measurements suggest pseudonormalized left ventricular relaxation, which is associated with grade II/IV or mild to moderate diastolic dysfunction The left ventricle is grossly normal size. Wall motion cannot be accurately commented on, but no definite regional wall motion abnormalities noted. The right ventricle is mild to moderately dilated. The right ventricular systolic function is normal. The right ventricle appears to be hypertrophied The right atrium is borderline dilated. The left atrial size is normal. There is a mild amount of mitral regurgitation There is no mitral valve stenosis. There is no aortic valve stenosis No aortic regurgitation is present. There is a trace to mild amount of tricuspid regurgitation There is mild pulmonary hypertension by echo Right ventricular systolic pressure is estimated to be elevated at 30- 40mmHg. The aortic root is not well visualized but is probably normal size. The inferior vena cava was not well visualized Minimal pericardial effusion. MMode/2D Measurements \T\ Calculations RVDd: 3.1 cm LVIDd: 3.8 cm FS: 35.1 % Ao root diam: 2.7 cm IVSd: 1.2 cm LVIDs: 2.4 cm EDV(Teich): 60.2 ml LVPWd: 1.2 cm ESV(Teich): 20.9 ml Ao root area: 5.6 cm2 EF(Teich): 65.2 % LA dimension: 3.2 cm LVOT diam: 2.0 cm LVOT area: 3.0 cm2 Doppler Measurements \T\ Calculations MV E max anya: MV P1/2t max anya: Ao V2 max: LV V1 max P.3 cm/sec 55.8 cm/sec 111.2 cm/sec 3.6 mmHg MV A max anya: MV P1/2t: 74.8 msec Ao max PG: LV V1 max: 83.4 cm/sec MVA(P1/2t): 2.9 cm2 4.9 mmHg 95.3 cm/sec MV E/A: 0.67 MV dec slope: GIA(V,D): 2.6 cm2 218.3 cm/sec2 PA V2 max: TR max anya: 82.4 cm/sec 263.3 cm/sec PA max PG: TR max P.7 mmHg 2.7 mmHg Left Ventricle The left ventricle is grossly normal size. There is mild concentric left ventricular hypertrophy. The left ventricular ejection fraction is normal. Doppler measurements suggest pseudonormalized left ventricular relaxation, which is associated with grade II/IV or mild to moderate diastolic dysfunction. Wall motion cannot be accurately commented on, but no definite regional wall motion abnormalities noted. Right Ventricle The right ventricle is mild to moderately dilated. The right ventricle appears to be hypertrophied. The right ventricular systolic function is normal. Atria The right atrium is borderline dilated. The left atrial size is normal. Interarterial septum not well visualized and not well dopplered. Cannot comment on ASD/PFO presence. Mitral Valve The mitral valve is grossly normal. There is no mitral valve stenosis. There is a mild amount of mitral regurgitation. Aortic Valve The aortic valve is grossly normal. There is no aortic valve stenosis. No aortic regurgitation is present. Tricuspid Valve The tricuspid valve is not well visualized, but is grossly normal. There is no tricuspid stenosis. There is a trace to mild amount of tricuspid regurgitation. There is mild pulmonary hypertension by echo. Right ventricular systolic pressure is estimated to be elevated at 30-40mmHg. Pulmonic Valve The pulmonic valve is not well visualized. Great Vessels The aortic root is not well visualized but is probably normal size. The inferior vena cava was not well visualized. Effusions Minimal pericardial effusion. : GARRISON SAHA > Nico Levnie
[2016-10-06] MEDS: MONTELUKAST SODIUM 10 MG TABLET PO SCH (21:30)
[2016-10-07 04:45] LABS: ANION GAP 13 (5-19); BLOOD UREA NITROGEN 20 mg/dL (7-20); CALCIUM 9.1 mg/dL (8.4-10.2); CARBON DIOXIDE 28 mmol/L (22-30); CHLORIDE 101 mmol/L (98-107); CREATININE RESULT 0.89 mg/dL (0.52-1.25); GLUCOSE 160 mg/dL (75-110); MAGNESIUM 2.2 mg/dL (1.6-2.3); POTASSIUM 5.3 mmol/L (3.6-5.0); SODIUM 141.6 mmol/L (137-145)
[2016-10-07 08:28] VITALS: BP 136/53
--- NOTE | 2016-10-07 08:49 | DISCHARGE SUMMARY E ---
Discharge Summary NAME: FLAVIO ZHONG : 1940 AGE: 76Y ADMITTED: 10/05/2016 DISCHARGED: 10/07/2016 CODE STATUS: FULL CODE. PRIMARY CARE PROVIDER: [facility]. SKIAGRAPHER: Dr. Garcia. DIELECTRIC TESTING MACHINE OPERATOR: Dr. Velazquez. DISCHARGE DIAGNOSES: 1. Community acquired bacterial pneumonia. 2. Chronic interstitial lung disease. 3. Sick sinus syndrome. 4. Diastolic dysfunction. 5. Right ventricular failure. 6. Mild pulmonary hypertension. 7. Acute respiratory failure secondary to the above, which is resolved. DISCHARGE MEDICATIONS: 1. Ceftin 500 mg p.o. b.i.d., 60 tablets, 0 refills. 2. Z-Carlos. 3. Lasix 20 mg p.o. q.a.m., 30 tablets, 0 refills. 4. Potassium chloride 10 mEq p.o. daily, 30 tablets, 0 refills. DIET: As tolerated. ACTIVITIES: As tolerated. DIAGNOSTICS: Laboratory values are as follows: Hematology obtained 10/05/2016: WBC 12.3, hemoglobin 11.3, hematocrit 33.9, platelet count 223,000. Coagulation studies obtained on 10/04/2016: D-dimer 0.70. Chemistries obtained on 10/07/2016: Sodium 141, potassium 5.3, chloride 101, carbon dioxide 28, BUN 20, creatinine 1.9, glucose 160, lactic acid 1.3, calcium 9.1, magnesium 2.2, bilirubin 0.6, AST 36, ALT 38, CK 29, CK-MB 0.28, troponin 0.012, total protein 8.5, albumin 3.4. Microbiology: Blood culture obtained on 10/05/2016 revealed no growth. Chest x-ray obtained on 10/04/2016 revealed no acute radiographic finding on the chest. Chest and abdominal CTA on 10/05/2016 revealed mild to moderate chronic interstitial lung disease with a 0.4 cm right lower lobe pulmonary nodule and mild to moderate mediastinal bihilar lymphadenopathy. Chest x-ray obtained 10/06/2016 revealed chronic changes in the lungs with evidence of pulmonary edema. EKG obtained on 10/04/2016 revealed sinus tachycardia, probably left atrial abnormality. Echocardiogram obtained on 10/06/2016 revealed a normal EAF with grade 2/4 mild to moderate diastolic dysfunction with right ventricle mildly dilated with right ventricular systolic function normal. Right ventricle appeared to be hypertrophied. Right atrium borderline dilated. Mild amount of mitral regurgitation. Mild amount of tricuspid regurgitation. Mild pulmonary hypertension by echo. Right RV pressure estimated to be elevated at 30-40. PHYSICAL EXAMINATION: GENERAL: The patient is well developed, well nourished, female, 76 years old, who is awake, alert, and oriented to person, place, and situation. She is verbal, conversational, ambulatory, does not appear to be in any acute distress. VITAL SIGNS: As follows: Temperature 98.3, pulse 79, respirations 14, blood pressure 119/50, oxygen saturation is 96% on room air. SKIN: Warm and dry. No rash, not diaphoretic. HEENT: Pupils equal, round, and reactive to light and accommodation. Conjunctivae pink. No JVP. CARDIOVASCULAR: Heart is regular. There is no murmur or rub. CHEST: Clear, symmetrical and unlabored. ABDOMEN: Soft, nontender, nondistended. BACK: No CVA tenderness or sacral edema. EXTREMITIES: No clubbing, cyanosis, edema. PSYCHIATRIC: Appropriate affect. Pleasant mood. HISTORY OF PRESENT ILLNESS: The patient is a 76-year-old, female with a past medical history of sick sinus syndrome. The patient presented to the emergency department with the chief complaint of cough, shortness of breath, and chest wall pain. The patient presented with a 3-day history of persistent annoying and mostly dry cough with associated chest wall pain and shortness of breath. The patient denied any vomiting, fevers, chills, diarrhea or dysuria. The patient's daughter, who was at the side of the patient, noted that they had a 3-day weekend in [place]. During that stay, the daughter had an upper respiratory tract infection, along with asthma flare. The daughter states that other members of this democrat also had similar symptoms. The patient developed these. The patient, herself, never smoked, but stated she had an abnormal amount of secondhand smoke through an ex-. The patient was found to have white count of 12.9, was producing sputum. The patient was found to be in some mild respiratory distress, tachycardiac with a low-grade temperature of 99.4 and hypoxic. The patient was referred to the hospitalist for admission and management. HOSPITAL COURSE: The patient was admitted to continuous telemetry unit. Serial cardiac enzymes were obtained, which were not suggestive. The patient had no events on quality assurance monitor final and no replication of any chest pain type symptoms. The patient was started on IV antibiotic therapy. CTA was negative for emboli, but was suggestive of chronic interstitial lung disease. Given the patient's subcentimeter pulmonary nodule, as well as lymphadenopathy, the patient was seen by Dr. Velazquez with Oncology and the patient is to follow up at discharge for followup surveillance. The patient was noted to have crackles the morning of 10/06/2016; however, the patient was diuresed and tolerated this well. The patient had received some volume resuscitation upon admission. The patient, given the findings, did have an echocardiogram, which was suggestive of some mild pulmonary hypertension, as well as RV failure. The patient already has an appointment with Cardiology and can follow up with them upon discharge. The patient will be started on low dose diuretic and we will follow. DISCHARGE PLAN: 1. The patient is to follow up with Dr. Velazquez as already scheduled for repeat surveillance. 2. The patient is to follow up with her slab off mill tender, Dr. Garcia, upon discharge. 3. The patient is to follow with her primary care provider as needed. TIME SPENT: On this discharge including assessment and plan, physical examination, patient education and family meeting is 25 minutes. DICTATING PHYSICIAN: GARRISON SAHA NP [id number] Y#: [id number] ID: [id number] JOB#: [id number] ACCT: [id number] cc:GILMA CORLEY M.D. GARRISON SAHA NP >
== END 2016-10-07 09:15 | disposition home or self-care (01) | DRG 193 ==
LOC: ER 22:30 → UNDOADMIN 10-05 03:09 → EH 10-05 03:09 → 5 10-05 04:29 → EH 10-05 04:29 → 5 10-05 05:29 → EH 10-05 05:29
PROVIDERS: ADMIT Family Medicine; ATTEND Family Medicine
DX: J15.9 Unspecified bacterial pneumonia (principal); J96.00 Acute respiratory failure, unspecified whether with hypoxia or hypercapnia; J84.9 Interstitial pulmonary disease, unspecified; I50.30 Unspecified diastolic (congestive) heart failure; I49.5 Sick sinus syndrome; J06.9 Acute upper respiratory infection, unspecified; R91.8 Other nonspecific abnormal finding of lung field; Z90.49 Acquired absence of other specified parts of digestive tract; Z90.710 Acquired absence of both cervix and uterus; Z95.0 Presence of cardiac pacemaker
CPT/HCPCS: 36415; 71010; 71020; 71275; 80048; 80053; 82550; 82553; 83605; 83735; 84484; 85025; 85379; 87040; 93005; 93010; 93306; 94799; 96360; 96361; 99285; J0456; J0696; J1650; J1940; J1956; J3490; J7030; J7060; J7512

== ENCOUNTER → 2016-12-12 | Outpatient (CLI) | payer MEDICARE, MEDICAID ==
--- NOTE | 2016-12-12 17:00 | RADIOLOGY REPORT (SQ) ---
EXAM DESCRIPTION: CT CHEST WITH COMPLETED DATE/TIME: 12/12/2016 2:58 pm REASON FOR STUDY: SOLITARY PULMONARY NODULE R91.1 SOLITARY PULMONARY NODULE COMPARISON: CT angio chest 10/05/2016 AP chest 10/04/2016, 10/06/2016 TECHNIQUE: CT scan of the chest performed using helical scanning technique with dynamic intravenous contrast injection. Images reviewed with lung, soft tissue and bone windows. Reconstructed coronal and sagittal MPR images reviewed. All images stored on PACS. All CT scanners at this facility use dose modulation, iterative reconstruction, and/or weight based d osing when appropriate to reduce radiation dose to as low as reasonably achievable (ALARA). [facility]: Dose Right [facility]: CareDose [facility]: Dose Right [facility]: Teradose 4D [facility]: RETC CONTRAST TYPE AND DOSE: contrast/concentration: Isovue 370.00 mg/ml; Total Contrast Delivered: 80.0 ml; Total Saline Delivered: 55.0 ml RENAL FUNCTION: Creatinine 1.0 RADIATION DOSE: Up-to-date CT equipment and radiation dose reduction techniques were employed. CTDIv ol: 6.8 mGy. DLP: 227 mGy-cm. . LIMITATIONS: None. FINDINGS: LUNGS AND PLEURA: The 4 mm nodule seen in the right superior segment lower lobe on CT ches t 10/05/2016 is no longer identified. Extensive peripheral pulmonary fibrosis with honeycombing and thickened interlobular septa. No acute infiltrates. No pleural effusion. No pneumothorax. No worrisome pulmonary nodules. HILAR AND MEDIASTINAL STRUCTURES: No identified masses or abnormal nodes. HEART AND VASCULAR STRUCTURES: No aneurysm or dissection. No central pulmonary emboli. No pericardi al effusion. Mild cardiomegaly. Left-sided dual lead pacemaker. Atherosclerotic irregularity of th e aorta without aneurysm. HARDWARE: Left-sided pacemaker UPPER ABDOMEN: No significant findings. Limited exam. THYROID AND OTHER SOFT TISSUES: No masses. No adenopathy. BONES: No significant finding. OTHER: No other significant finding. IMPRESSION: No worrisome pulmonary nodules. Diffuse pulmonary fibrosis. TECHNICAL DOCUMENTATION: JOB ID: [id number] Quality ID # [id number]: Final reports with documentation of one or more dose reduction techniques (e.g., Au tomated exposure control, adjustment of the mA and/or kV according to patient size, use of iterative reconstruction technique) 2010 [employer]- All Rights Reserved
== END ==
LOC: RAD 14:20
PROVIDERS: ATTEND Internal Medicine
DX: R91.1 Solitary pulmonary nodule (principal); J84.10 Pulmonary fibrosis, unspecified
CPT/HCPCS: 71260

== ENCOUNTER 2017-08-19 20:08 | Emergency (ER) | payer MEDICARE, MEDICAID ==
[2017-08-19] MEDS ORDERED: MORPHINE SULFATE 10 MG/ML INJ IV ONE (21:35)
--- NOTE | 2017-08-19 21:37 | ER Document Report ---
ED Cardiac - General Chief Complaint: Chest Pain Stated Complaint: CHEST PAIN Time Seen by Provider: 08/19/17 21:26 Notes: Patient is a 76-year-old female who comes emergency department for chief complaint of chest pain. She states pain comes and goes, has been present throughout the day, she states she frequently feels pain around the pacemaker area "but today the pain happened while lying down" and she became concerned. She denies belching, nausea or vomiting, shortness of breath, fever or chills. She reports mild occasional cough. She has a pacemaker, follows with Dr. Gonzalez in [place], states she has a close follow-up with cardiology to get the pacemaker replaced. She reports her only other medical history is a breast cyst removal and appendectomy, she does not smoke, drink alcohol, denies recreational drugs, and denies any daily medications. She is allergic to aspirin. Denies family history of [place]. Patient speaks some [place]err[place]ian, family member at bedside speaks fluent [place]ian, patient declines educational interpreter. TRAVEL OUTSIDE OF THE [place] IN LAST 30 DAYS: No - Related Data Allergies/Adverse Reactions: aspirin Allergy (Verified 01/17/17 07:32) Past Medical History - General Information source: Patient - Social History Smoking Status: Never Smoker Frequency of alcohol use: None Drug Abuse: None Lives with: Family Family History: Reviewed & Not Pertinent Patient has suicidal ideation: No Patient has homicidal ideation: No - Past Medical History Cardiac Medical History: Reports: Other - Pacemaker Denies: Hx Atrial Fibrillation, Hx Congestive Heart Failure, Hx Coronary Artery Disease, Hx DVT, Hx Heart Attack, Hx Hypercholesterolemia, Hx Hypertension, Hx Pulmonary Embolism Pulmonary Medical History: Denies: Hx Asthma, Hx COPD, Hx Sleep Apnea Neurological Medical History: Denies: Hx Seizures Endocrine Medical History: Denies: Hx Diabetes Mellitus Type 1, Hx Diabetes Mellitus Type 2, Hx Hyperthyroidism, Hx Hypothyroidism Renal/ Medical History: Denies: Hx Peritoneal Dialysis GI Medical History: Denies: Hx Cirrhosis, Hx Gastroesophageal Reflux Disease, Hx Hepatitis Musculoskeltal Medical History: Denies Hx Arthritis Psychiatric Medical History: Denies: Hx Depression Infectious Medical History: Denies: Hx Hepatitis Past Surgical History: Reports: Hx Appendectomy, Hx Cardiac Surgery - pacemaker placement, Hx Hysterectomy, Hx Orthopedic Surgery - ACL repair, Hx Pacemaker, Hx Tonsillectomy, Other - Hemorrhoidectomy Review of Systems - Review of Systems Constitutional: No symptoms reported EENT: No symptoms reported Cardiovascular: See HPI Respiratory: See HPI Gastrointestinal: No symptoms reported Genitourinary: No symptoms reported Female Genitourinary: No symptoms reported Musculoskeletal: See HPI Skin: No symptoms reported Hematologic/Lymphatic: No symptoms reported Neurological/Psychological: No symptoms reported Physical Exam - Vital signs Vitals: Temp Pulse Resp BP Pulse Ox 98.1 F 71 16 165/61 H 96 08/19/17 20:26 08/19/17 20:26 08/19/17 20:26 08/19/17 20:26 08/19/17 20:26 - Notes Notes: GENERAL: Alert, interacts well. No acute distress. HEAD: Normocephalic, atraumatic. EYES: Pupils equal, round, and reactive to light. Extraocular movements intact. ENT: Oral mucosa moist, tongue midline. NECK: Full range of motion. Supple. Trachea midline. LUNGS: Clear to auscultation bilaterally, no wheezes, rales, or rhonchi. No respiratory distress. Reproducible tenderness over the chest wall although no crepitus, erythema, swelling, or severe tenderness. HEART: Regular rate and rhythm. No murmur ABDOMEN: Soft, non-tender. Non-distended. Bowel sounds present in all 4 quadrants. EXTREMITIES: Moves all 4 extremities spontaneously. No edema, normal radial and dorsalis pedis pulses bilaterally. No cyanosis. BACK: no cervical, thoracic, lumbar midline tenderness. No saddle anesthesia, normal distal neurovascular exam. NEUROLOGICAL: Alert and oriented x3. Normal speech. [cranial nerves II through XII grossly intact]. PSYCH: Normal affect, normal mood. SKIN: Warm, dry, normal turgor. No rashes or lesions noted. Course - Re-evaluation Re-evalutation: Patient's heart score is actually only 2. No specific or concerning symptoms reported (intermittent symptoms, ongoing symptoms daily, has chest wall pain on exam, pain resolved with pain medication). EKG showing sinus rhythm with no T- wave inversions or ST segment changes in consecutive leads. Patient with no prior risk factors although she does have a pacemaker. Chest x-ray unremarkable. CBC, chemistry, troponin and repeat troponin are unremarkable. Because of patient's age and lack of previous workup along with her complaints of chest pain I did discuss with patient and daughter recommendation of telemetry observation, however they declined, they state that they have a carrier driver and they will call him tomorrow, they state that they will be seen in close follow-up, they state they will return if she develops new or worsening symptoms. Patient stable at time of discharge. - Vital Signs Vital signs: Temp Pulse Resp BP Pulse Ox 98.2 F 71 19 153/64 H 97 08/20/17 02:12 08/19/17 20:26 08/20/17 01:52 08/20/17 01:52 08/20/17 01:52 - Laboratory Result Diagrams: 08/19/17 21:45 08/19/17 21:45 Laboratory results interpreted by me: 08/19/17 08/19/17 21:45 21:45 Hgb 11.8 L Hct 35.5 L MCH 26.7 L RDW 15.4 H Carbon Dioxide 32 H Discharge - Discharge Clinical Impression: History of pacemaker, Chest wall pain Chest pain Qualifiers: Chest pain type: unspecified Qualified Code(s): R07.9 - Chest pain, unspecified Condition: Stable Disposition: HOME, SELF-CARE Additional Instructions: The workup to this point tonight does not show any concerning findings. Please follow-up by calling your carrier driver tomorrow to be seen shortly for additional evaluation and management. Return if you worsen in anyway including returned or increased pain, difficulty breathing, vomiting, fever, passing out, or any other concerning symptoms. Forms: Elevated Blood Pressure Referrals: MACARIO SULTANA DO [Primary Care Provider] - Follow up as needed
[2017-08-19 22:09] LABS: ABSOLUTE EOSINOPHILS # (AUTO) 0.3 10^3/uL (0.0-0.6); ABSOLUTE LYMPHOCYTES (AUTO) 2.2 10^3/uL (0.5-4.7); ABSOLUTE MONOCYTES (AUTO) 0.7 10^3/uL (0.1-1.4); ABSOLUTE NEUT (AUTO) 6.9 10^3/uL (1.7-8.2); BASOPHILS % (AUTO) 0.4 % (0-2); EOSINOPHILS % (AUTO) 2.9 % (0-6); HEMATOCRIT 35.5 % (36.0-47.0); HEMOGLOBIN 11.8 g/dL (12.0-15.5); MEAN CORPUSCULAR HEMOGLOBIN 26.7 pg (27.0-33.4); MEAN CORPUSCULAR HGB CONC 33.3 g/dL (32.0-36.0); MEAN CORPUSCULAR VOLUME 80 fl (80-97); MONOCYTES % (AUTO) 6.9 % (3-13); PLATELET COUNT 258 10^3/uL (150-450); RED BLOOD COUNT 4.42 10^6/uL (3.72-5.28); RED CELL DISTRIBUTION WIDTH 15.4 % (11.5-14.0); SEGMENTED NEUTROPHILS % (AUTO) 67.8 % (42-78); TOTAL CELLS COUNTED % (AUTO) 100 %; WHITE BLOOD COUNT 10.2 10^3/uL (4.0-10.5)
[2017-08-19 22:12] LABS: ALANINE AMINOTRANSFERASE 25 U/L (9-52); ALBUMIN 3.9 g/dL (3.5-5.0); ALKALINE PHOSPHATASE 67 U/L (38-126); ANION GAP 9 (5-19); ASPARTATE AMINO TRANSFERASE 31 U/L (14-36); BILIRUBIN,DIRECT 0.3 mg/dL (0.0-0.4); BILIRUBIN,TOTAL 0.3 mg/dL (0.2-1.3); BLOOD UREA NITROGEN 16 mg/dL (7-20); CARBON DIOXIDE 32 mmol/L (22-30); CHLORIDE 102 mmol/L (98-107); CREATINE KINASE 38 U/L (30-135); GLUCOSE 98 mg/dL (75-110); POTASSIUM 4.2 mmol/L (3.6-5.0); SODIUM 142.9 mmol/L (137-145)
[2017-08-19 22:55] LABS: CREATINE KINASE MB 0.43 ng/mL (<4.55)
[2017-08-19 23:00] LABS: TROPONIN I < 0.012 ng/mL
--- NOTE | 2017-08-20 01:34 | RADIOLOGY REPORT (SQ) ---
EXAM DESCRIPTION: XR CHEST 1 VIEW CLINICAL HISTORY: 76 years Female, chest pain COMPARISON: 7.28.17 NUMBER OF VIEWS/TECHNIQUE: 1/AP FINDINGS: Moderate chronic interstitial lung disease pattern, normal cardiac silhouette, atherosclerosis, left cardiac stimulator with leads and intact bony thorax. IMPRESSION: No acute cardiopulmonary findings. Chronic interstitial lung disease.
[2017-08-20 01:55] VITALS: BP 153/64
--- NOTE | 2017-08-20 13:26 | EKG REPORT ---
SEVERITY:- NORMAL ECG - SINUS RHYTHM : Confirmed by: Jun Casas MD 20-Aug-2017 13:26:01
== END 2017-08-20 02:23 | disposition home or self-care (01) ==
LOC: ER 20:08
DX: R07.89 Other chest pain (principal); R05 Cough; Z95.0 Presence of cardiac pacemaker; Z88.6 Allergy status to analgesic agent
CPT/HCPCS: 93005; 99285; 96374; 36415; 82553; 82550; 85025; 80053; 84484; 71045; 93010; J2270

== ENCOUNTER 2019-03-12 13:53 | Emergency (ER) | payer MEDICARE, MEDICAID ==
--- NOTE | 2019-03-12 15:29 | ER Document Report ---
Entered by MACI MENG SCRIBE 03/12/19 1458 Acting as scribe for:LUIS ENRIQUE JACKSON MD ED Head/Face/Scalp Injury - General Chief Complaint: Laceration Stated Complaint: HEAD INJURY Time Seen by Provider: 03/12/19 14:48 Primary Care Provider: MACARIO SULTANA DO [Primary Care Provider] - Follow up as needed Mode of Arrival: Ambulatory Information source: Patient, Relative Notes: This 78 year old female patient presents to the ED today with complaints of a scalp laceration that occurred x1 hour prior to arrival. Daughter states that the patient hit her head on the trunk of car as it was closing. Daughter denies loss of consciousness. Daughter denies patient history of blood thinners. TRAVEL OUTSIDE OF THE [place] IN LAST 30 DAYS: No - Related Data Allergies/Adverse Reactions: aspirin Allergy (Verified 03/12/19 14:51) Past Medical History - General Information source: Relative - Social History Smoking Status: Never Smoker Cigarette use (# per day): No Chew tobacco use (# tins/day): No Smoking Education Provided: No Frequency of alcohol use: None Drug Abuse: None Lives with: Family Family History: Reviewed & Not Pertinent Patient has suicidal ideation: No Patient has homicidal ideation: No Past Surgical History: Reports: Hx Appendectomy, Hx Hysterectomy, Hx Orthopedic Surgery - ACL repair, Hx Pacemaker, Hx Tonsillectomy, Other - Hemorrhoidectomy Review of Systems - Review of Systems Constitutional: No symptoms reported EENT: No symptoms reported Cardiovascular: No symptoms reported Respiratory: No symptoms reported Gastrointestinal: No symptoms reported Genitourinary: No symptoms reported Female Genitourinary: No symptoms reported Musculoskeletal: No symptoms reported Skin: See HPI, Other - Scalp laceration Hematologic/Lymphatic: No symptoms reported Neurological/Psychological: See HPI. denies: Lost consciousness -: Yes All other systems reviewed and negative Physical Exam - Vital signs Vitals: Temp Pulse Resp BP Pulse Ox 97.5 F 77 16 172/72 H 97 03/12/19 13:59 03/12/19 13:59 03/12/19 13:59 03/12/19 13:59 03/12/19 13:59 Interpretation: Hypertensive - General General appearance: Alert In distress: None - HEENT Head: Other - Frontal scalp has a 1 cm transverse superficial break in skin. Swelling and tenderness noted. Eyes: Normal Pupils: PERRL Neck: Supple, Other - Nontender - Respiratory Respiratory status: No respiratory distress Chest status: Nontender Breath sounds: Normal Chest palpation: Normal - Cardiovascular Rhythm: Regular Heart sounds: Normal auscultation Murmur: No - Abdominal Inspection: Normal Distension: No distension Bowel sounds: Normal Tenderness: Nontender Organomegaly: No organomegaly - Back Back: Normal, Nontender - Extremities General upper extremity: Normal inspection General lower extremity: Normal inspection - Neurological Neuro grossly intact: Yes - Psychological Associated symptoms: Normal affect, Normal mood - Skin Skin Temperature: Warm Skin Moisture: Dry Skin Color: Normal Skin irregularity: Laceration Location of irregularity: Scalp Irregularity with: Swelling, Tenderness Course - Vital Signs Vital signs: Temp Pulse Resp BP Pulse Ox 97.8 F 70 20 153/67 H 96 03/12/19 15:28 03/12/19 15:28 03/12/19 15:28 03/12/19 15:28 03/12/19 15:28 Discharge - Discharge Clinical Impression: Scalp contusion Qualifiers: Encounter type: initial encounter Qualified Code(s): S00.03XA - Contusion of scalp, initial encounter Scalp laceration Qualifiers: Encounter type: initial encounter Qualified Code(s): S01.01XA - Laceration without foreign body of scalp, initial encounter Condition: Stable Disposition: HOME, SELF-CARE Additional Instructions: Scalp Hematoma: You have a scalp hematoma. This is a bump caused by blood underneath the scalp. This is a common injury, and usually causes only mild local pain or headache. There is no evidence of a skull fracture or of a brain injury. A scalp hematoma will usually disappear after a few days. Put cold packs on the swollen area for 20-30 minutes every 2-3 hours until the swelling improves. Use acetaminophen or ibuprofen for pain. Avoid aspirin because this may increase bleeding under the scalp. You may have a mild headache for a few days. Call the doctor or return if there is severe headache, confusion, personality changes, vomiting, severe dizziness, or difficulty with balance or coordination. Scalp Laceration: A scalp laceration requires little care. Dressings are applied only if severe bleeding or a large flap are present. You can shampoo your hair as needed starting tomorrow. If crusting is bothersome, you can soften the crusts with Polysporin ointment, then shampoo. Infection in a scalp laceration is rare. If any signs of infection occur (swelling, redness, increasing tenderness, red streaks, tender lumps in the neck on the side of the laceration, or fever), see the doctor immediately. Use ice packs to reduce pain and swelling. Take Tylenol for pain as needed. Use bacitracin or Neosporin ointment on the cut to keep it moisturized and reduce crusting. Your blood pressure was a little elevated when you came in today. Be sure to check your blood pressure regularly, if it remains elevated, then you should follow-up with your primary care provider. RETURN TO THE EMERGENCY ROOM IF ANY NEW OR WORSENING SYMPTOMS. Referrals: MACARIO SULTANA, DO [Primary Care Provider] - Follow up as needed [place] Attestation: 03/12/19 15:05 I personally performed the services described in the documentation, reviewed and edited the documentation which was dictated to the scribe in my presence, and it accurately records my words and actions. I personally performed the services described in the documentation, reviewed and edited the documentation which was dictated to the scribe in my presence, and it accurately records my words and actions.
[2019-03-12 15:30] VITALS: BP 153/67
[2019-03-12] MEDS ORDERED: ACETAMINOPHEN 325 MG TABLET PO ONE (15:40)
== END 2019-03-12 15:46 | disposition home or self-care (01) ==
LOC: ER 13:53
DX: S01.01XA Laceration without foreign body of scalp, initial encounter (principal); W22.8XXA Striking against or struck by other objects, initial encounter; Z88.6 Allergy status to analgesic agent; Z90.710 Acquired absence of both cervix and uterus
CPT/HCPCS: 99282; A9270